=== PATIENT | female | born 1980 | race Caucasian/White ===

== ENCOUNTER 2022-08-26 00:54 | Inpatient (IN) | payer SELFPAY ==
[~2022-08-26] VITALS: Ht 160 cm; Wt 112.0 kg
[~2022-08-26 00:54] MED LIST: CARBOPROST TROMETHAMINE 250 MCG/ML AMPUL IM PRN; LIDOCAINE HCL 1% 20ML VIAL (Pyxis) INJ INFIL SCH; METHYLERGONOVINE MALEATE 0.2 MG/ML IM PRN; MISOPROSTOL 100MCG TABLET VG SCH
[2022-08-26] MEDS ORDERED: BUTORPHANOL TARTRATE 2 MG/ML VIAL IV PRN ×2 (02:00→06:15)
[2022-08-26] MEDS ORDERED: OXYTOCIN 30 UNITS/500ML NS PMX 500 ML IV SCH (02:00)
[2022-08-26] MEDS ORDERED: NALOXONE HCL 0.4 MG/ML 1ML VIAL IM PRN (02:00)
[2022-08-26] MEDS ORDERED: AMPICILLIN 2GM in NS 100ML 100 ML IV SCH (02:00)
[2022-08-26] MEDS: LACTATED RINGERS 1,000 ML IV SCH ×3 (02:13→19:37)
[2022-08-26] MEDS ORDERED: MISOPROSTOL 100MCG TABLET VG PRN (02:30)
[2022-08-26 03:24] LABS: CLARITY URINE CLEAR (CLEAR); COLOR URINE YELLOW (YELLOW); KETONES URINE NEGATIVE (NEGATIVE); LEUKOCYTE ESTERASE URINE 2+ (NEGATIVE); NITRITE URINE NEGATIVE (NEGATIVE); OCCULT BLOOD URINE NEGATIVE (NEGATIVE); PROTEIN URINE TRACE (NEGATIVE); SPECIFIC GRAVITY URINE 1.023 (1.005-1.030); UROBILINOGEN URINE 0.2 E.U./dL (0.2-1.0)
[2022-08-26 03:28] LABS: BASOPHILS % 0.4 % (0.0-2.0); HEMATOCRIT. 30.5 % (36.0-48.0); HEMOGLOBIN. 10.4 g/dL (12.0-16.0); LYMPHOCYTES % 24.4 % (20.0-50.0); MEAN CORPUSCULAR HEMOGLOBIN 28.3 pg (28.0-32.0); MEAN CORPUSCULAR VOLUME 82.7 fL (81.0-99.0); MEAN PLATELET VOLUME 8.6 fl (7.4-10.4); MONOCYTES % 7.4 % (2.0-8.0); NEUTROPHILS % 67.8 % (40.0-76.0); PLATELET 251 x1000/uL (130-400); RED BLOOD CELL COUNT 3.69 mill/uL (4.2-5.4); RED CELL DISTRIBUTION WIDTH 15.8 % (11.6-14.6)
[2022-08-26 03:35] LABS: INR 0.9; PROTHROMBIN TIME 9.8 sec (9.6-11.0)
[2022-08-26 03:43] LABS: *AMPHETAMINES SCREEN URINE NEGATIVE (NEGATIVE); *BARBITURATES SCREEN URINE NEGATIVE (NEGATIVE); *BENZODIAZEPINES SCREEN URINE NEGATIVE (NEGATIVE); *COCAINE SCREEN URINE NEGATIVE (NEGATIVE); CANNABINOID URINE SCREEN NEGATIVE (NEGATIVE); METHADONE URINE SCREEN NEGATIVE (NEGATIVE); OPIATES URINE SCREEN NEGATIVE (NEGATIVE); PHENCYCLIDINE URINE SCREEN NEGATIVE (NEGATIVE)
[2022-08-26 04:14] LABS: HEPATITIS B SURFACE ANTIGEN NEGATIVE
[2022-08-26] MEDS ORDERED: MORPHINE SULFATE/PF 1MG/ML 10ML AMP ONE (05:08)
[2022-08-26] MEDS ORDERED: FENTANYL CITRATE/PF 50MCG/ML 2ML VIAL ONE ×2 (05:08→05:35)
[2022-08-26] MEDS ORDERED: OXYTOCIN 10 UNITS/ML 1ML ONE (05:09)
[2022-08-26] MEDS ORDERED: PHENYLEPHRINE HCL 10 MG/ML 1ML (IV VIAL) IV ONE (05:09)
[2022-08-26] MEDS ORDERED: CEFAZOLIN SODIUM 1000MG/VIAL ONE (05:09)
[2022-08-26] MEDS ORDERED: ONDANSETRON HCL 4MG/2ML INJ ONE (05:09)
[2022-08-26] MEDS ORDERED: EPHEDRINE SULFATE 50MG/ML VIAL ONE (05:09)
[2022-08-26] MEDS ORDERED: SODIUM CHLORIDE 0.9% 10ML VIAL ONE (05:10)
[2022-08-26] MEDS ORDERED: KETOROLAC 60MG/2ML VIAL IM ONE (05:57)
[2022-08-26] MEDS ORDERED: DIPHENHYDRAMINE 50MG/ML VIAL ONE (05:57)
[2022-08-26] MEDS ORDERED: NALOXONE HCL 0.4 MG/ML 1ML VIAL IV PRN (06:15)
[2022-08-26] MEDS ORDERED: DIPHENHYDRAMINE 50MG/ML VIAL IV PRN (06:15)
[2022-08-26] MEDS ORDERED: HYDROMORPHONE HCL/PF 2MG/ML CPJ IM PRN (07:00)
[2022-08-26] MEDS ORDERED: IBUPROFEN 400MG TABLET PO PRN (07:00)
[2022-08-26] MEDS ORDERED: FERR325T6 MT (07:28)
[2022-08-26] MEDS ORDERED: pnv (07:28)
[2022-08-26] MEDS ORDERED: FOLI20CA MT (07:28)
[2022-08-26] MEDS ORDERED: CALCIUM (07:28)
[2022-08-26] MEDS ORDERED: AMPICILLIN 1,000 MG in SODIUM CHLORIDE 0.9% 50 ML IV SCH (08:30)
[2022-08-26] MEDS ORDERED: BISACODYL 10MG SUPP PR PRN (09:00)
[2022-08-26 09:20] VITALS: BP 108/68
[2022-08-26 10:20] VITALS: BP_SYST 108; BP_SYST 114; BP_DIAS 68; BP_DIAS 71
[2022-08-26 11:20] VITALS: BP 110/69
[2022-08-26] MEDS: KETOROLAC 30MG/ML VIAL IV SCH ×2 (11:44→18:18)
[2022-08-26 16:40] VITALS: BP 100/58
[2022-08-26] MEDS ORDERED: MEASLES,MUMPS&RUBELLA VACCINE 1 VIAL SUBCUT ONE (19:15)
[2022-08-26 20:00] VITALS: BP 119/72
[2022-08-26] MEDS ORDERED: DIPHENHYDRAMINE 25MG CAPSULE PO PRN (21:00)
[2022-08-27] VITALS: BP 103/55
[2022-08-27] MEDS: IBUPROFEN 800MG TABLET PO PRN ×4 (01:51→20:31)
[2022-08-27 04:00] VITALS: BP 98/56
[2022-08-27 06:22] LABS: BASOPHILS % 0.4 % (0.0-2.0); HEMATOCRIT. 24.4 % (36.0-48.0); HEMOGLOBIN. 8.3 g/dL (12.0-16.0); MEAN CORPUSCULAR HEMOGLOBIN 28.3 pg (28.0-32.0); MEAN CORPUSCULAR VOLUME 82.7 fL (81.0-99.0); MEAN PLATELET VOLUME 8.5 fl (7.4-10.4); MONOCYTES % 7.1 % (2.0-8.0); NEUTROPHILS % 68.5 % (40.0-76.0); PLATELET 192 x1000/uL (130-400); RED BLOOD CELL COUNT 2.95 mill/uL (4.2-5.4); RED CELL DISTRIBUTION WIDTH 15.7 % (11.6-14.6)
[2022-08-27 07:50] VITALS: BP 108/71
[2022-08-27] MEDS: PRENATAL VIT/FE FUMARATE/FA TABLET PO SCH (07:50)
[2022-08-27] MEDS: FERROUS SULFATE 325MG TABLET PO SCH ×2 (07:50→13:28)
[2022-08-27 16:30] VITALS: BP 98/64
[2022-08-27 20:00] VITALS: BP 94/50
[2022-08-28 04:00] VITALS: BP 113/67
[2022-08-28] MEDS: IBUPROFEN 800MG TABLET PO PRN (04:34)
[2022-08-28] MEDS ORDERED: IBUP-2030 PO (07:03)
[2022-08-28 07:30] VITALS: BP 125/76
[2022-08-28] MEDS ORDERED: MEDROXYPROGESTERONE ACETATE 150MG/ML VIAL IM NR (08:00)
[2022-08-28] MEDS: PRENATAL VIT/FE FUMARATE/FA TABLET PO SCH (08:38)
[2022-08-28] MEDS: FERROUS SULFATE 325MG TABLET PO SCH (08:38)
== END 2022-08-28 11:20 | disposition home or self-care (01) | DRG 540 ==
LOC: 8 EST LDRP 00:54 → OBSVTOIN 00:54 → 8EST 09:10
PROVIDERS: ADMIT Obstetrics & Gynecology; ATTEND Obstetrics & Gynecology
PROC: 10D00Z1 Extraction of Products of Conception, Low, Open Approach (ICD-10-PCS; principal; 2022-08-26)
DX: O36.63X0 Maternal care for excessive fetal growth, third trimester, not applicable or unspecified (principal); O99.214 Obesity complicating childbirth; O98.52 Other viral diseases complicating childbirth; Z37.0 Single live birth; O99.02 Anemia complicating childbirth; Z3A.39 39 weeks gestation of pregnancy; Z20.822 Contact with and (suspected) exposure to COVID-19
CPT/HCPCS: 36415; 76805; 76818; 80305; 81003; 85025; 86592; 86703; 86762; 86850; 86900; 87340; 87426; 88307; 90707; J0290; J0690; J1050; J1200; J1885; J2274; J2370; J2405; J3010; J3490; J7120; A4315; J2590